=== PATIENT | male | born 1975 | race Caucasian/White ===

== ENCOUNTER 2021-04-19 18:19 | Emergency (ER) | payer BC, SELFPAY ==
[2021-04-19 18:22] VITALS: BP 124/82; PULSE 101; RESP 16; TEMP 36.6; O2SAT 98; BMI 31.8
--- NOTE | 2021-04-19 18:37 | XR_ITS ---
PROCEDURE INFORMATION: Exam: XR Right Toe(s) Exam date and time: 04/19/21 06:37 PM Age: 46 years old Clinical indication: Injury or trauma; Other: Dropped something on toe; Blunt trauma; Toes; Patient HX: Dropped car rim on right great toe, toenail sticking straight up TECHNIQUE: Imaging protocol: XR Right toes. Views: Minimum 2 views. COMPARISON: No relevant prior studies available. FINDINGS: Bones/joints: Normal. Soft tissues: Avulsed great toenail. IMPRESSION: 1. Avulsed great toenail. 2. No acute underlying osseous injury detected.
--- NOTE | 2021-04-19 18:37 | [facility].EDGENADL ---
ED Disposition Clinical Impression: Nail avulsion of toe Qualifiers: Encounter type: initial encounter Qualified Code(s): S91.209A - Unspecified open wound of unspecified toe(s) with damage to nail, initial encounter Disposition: Home, Self-Care Condition on Discharge: Good Additional Instructions: Follow-up with your primary doctor early next week. Return to the ER with new, changing, or worsening symptoms. Referrals: Ed Brock [Primary Care Provider] - - Critical Care Critical Care Time: No Attestation: On 04/19/21, the high probability of a clinically significant, sudden or life threatening deterioration of the following system(s) required my full and direct attention, intervention and personal management. The time I documented below is in addition to time spent performing reported procedures but includes the following listed in this critical care notation. Medical Decision Making - Medical Records Medical records reviewed: Yes: I reviewed the patient's medical records. - Mukesh Inquiry Pt receiving controlled substance: No Vital Signs: 04/19/21 18:22 04/19/21 19:41 Temperature 98 F 98 F Temperature Source Oral Oral Pulse Rate 78 Pulse Rate [Radial] 101 H Respiratory Rate 16 16 Blood Pressure 142/74 H Blood Pressure [Right Arm] 124/82 Blood Pressure Mean [Right Arm] 96 Blood Pressure Position Sitting Blood Pressure Position [Right Arm] Sitting 02 Sat by Pulse Oximetry 98 Oxygen Delivery Method Room Air Room Air Orders (Tests/Meds): ED MEDICATIONS Discontinued Medications Generic Name Dose Route Start Last Admin Trade Name Freq PRN Reason Stop Dose Admin Tetanus/Reduced Diphtheria/Acell Pertussis 0.5 ml 04/19/21 18:51 04/19/21 19:20 Tet/Diphth/Pert-Adult 0.5ml Syringe IM 04/19/21 18:52 0.5 ml .ONCE ONE Administration Medical Decision Narrative: Patient is hemodynamically stable arrival nontoxic. Will obtain an x-ray of the patient's foot to evaluate for possible fracture or other injury after this I numbed up the patient's foot. Was able to remove the toenail and then placed a small piece of foil back into the patient's nail bed. Please see full procedure note for further details. However patient stated he just wanted the nail removed and nothing to put in the nail bed. I told the patient there is a high risk that his nail might not grow back if we do not do this. He understood these risk and stated that he just wants the nail gone because it has been deformed for years and this happened many years ago. X-ray of the foot grossly normal. After this patient able to ambulate in the emergency department. He was given multiple wraps as well as gauze to take at home to help keep his foot clean. He was counseled on close return precautions and said he will follow-up with his doctor early next week. General Adult HPI - General Chief complaint: PAIN Stated complaint: ao 04/19 1730 iNJURED R BIG TOE Time Seen by Provider: 04/19/21 19:30 Mode of Arrival: Ambulatory Limitations: No Limitations Description of Symptoms (Recalled from ER Triage Doc. by RN): TO ED PER [employer] CAR WITH C/O INJURY TO RT GREAT TOE STATES A TIRE RIM FELL ONTO TOE AND AVULSION TO NAIL. - History of Present Illness HPI narrative: 46-year-old male with no significant past history presents emergency department for right great toenail injury. Patient says that a metal tire and fell onto the top of his foot and it bent back the toenail. The toenail is still in place but he has significant pain when he walks right now due to his great toe. States he has this toenail has always been abnormal because it was removed one time he was a child and it grew back abnormal as well. He denies any pain to his foot or ankle. Pain is only located to the toe at this time. Onset (ago): minute(s) (45 minutes ago) Location: lower extremity Radiation: non-radiation Severity scale (1-10): 3 Quality: stabbing Consistenc
[2021-04-19 19:41] VITALS: BP 142/74; PULSE 78; RESP 16; TEMP 36.6; O2SAT 98
== END 2021-04-19 19:42 | disposition home or self-care (01) ==
PROVIDERS: Emergency Provider Emergency Medicine; PCP Family Medicine
DX: S91.211A Laceration without foreign body of right great toe with damage to nail, initial encounter (principal); W22.8XXA Striking against or struck by other objects, initial encounter; Y92.89 Other specified places as the place of occurrence of the external cause; Z23 Encounter for immunization
CPT/HCPCS: 11730; 73660; 90471; 90715; 99281; 99282

== ENCOUNTER → 2021-07-01 08:30 | Outpatient (CLI) | payer BC, SELFPAY | PROVIDERS: PCP Family Medicine; Visit Provider Nurse Practitioner | DX: Z20.822 Contact with and (suspected) exposure to COVID-19 (principal) | CPT/HCPCS: C9803; U0003; U0005 ==